=== PATIENT | female | born 1975 | race Caucasian/White ===

== ENCOUNTER 2016-10-16 11:15 | Observation (INO) | payer OTHER ==
[~2016-10-16] VITALS: Ht 165 cm; Wt 77.0 kg
[2016-10-16] MEDS ORDERED: RINGERS SOLUTION,LACTATED 1,000 ML IV ONE (12:45)
[2016-10-16 13:20] VITALS: BP 120/73
[2016-10-16 13:42] LABS: GLUCOSE COMMENT 1 Doctor Notified; GLUCOSE,POINT OF CARE 66 MG/DL (70-110)
[2016-10-16] MEDS: BETAMETHASONE SOLUSPAN 6 MG/ML 5 ML VIAL IM SCH (13:43)
[2016-10-16] MEDS: RINGERS SOLUTION,LACTATED 1,000 ML IV SCH ×3 (15:50→23:17)
[2016-10-16] MEDS ORDERED: NIFEdipine 10 MG CAPSULE PO ONE (16:15)
[2016-10-16] MEDS ORDERED: PRENATALVIT PO (16:44)
[2016-10-16] MEDS ORDERED: [UNRECOGNIZED DRUG - OTHER] PO (16:44)
[2016-10-16] MEDS ORDERED: [UNRECOGNIZED DRUG - OTHER] PO (16:44)
[2016-10-16 22:59] LABS: BASOPHILS # (AUTO) 0.01 K/uL (0.00-0.20); BASOPHILS % (AUTO) 0.2 % (0.0-2.0); EOSINOPHILS % (AUTO) 0.03 % (1.0-6.0); LYMPHOCYTES # (AUTO) 0.6 K/uL (1.0-4.8); LYMPHOCYTES % (AUTO) 11.6 % (22.0-44.0); MEAN CORPUSCULAR HEMOGLOBIN 31.5 pg (26.0-34.0); MEAN CORPUSCULAR VOLUME 92 fL (80-100); MONOCYTES # (AUTO) 0.1 K/uL (0.1-1.0); MONOCYTES % (AUTO) 2.1 % (2.0-9.0); NEUTROPHILS # (AUTO) 4.7 K/uL (1.8-7.7); RED BLOOD CELL COUNT(AUTO) 4.12 MIL/uL (4.00-5.20); RED CELL DISTRIBUTION WIDTH 15.5 % (11.5-14.5); WHITE BLOOD COUNT (AUTO) 5.5 K/uL (4.5-11.0)
[2016-10-16 23:06] LABS: NEUTROPHILS % (AUTO) 86.2 % (40.0-70.0)
[2016-10-17] MEDS: BETAMETHASONE SOLUSPAN 6 MG/ML 5 ML VIAL IM SCH (01:47)
[2016-10-17] MEDS: NIFEdipine 10 MG CAPSULE PO SCH ×2 (03:33→09:02)
[2016-10-17] MEDS: RINGERS SOLUTION,LACTATED 1,000 ML IV SCH ×2 (05:03→07:44)
[2016-10-17 08:52] LABS: GLUCOSE COMMENT 1 FASTING; GLUCOSE,POINT OF CARE 77 MG/DL (70-110)
== END 2016-10-17 10:20 | disposition home or self-care (01) ==
LOC: 4S 11:15
PROVIDERS: ADMIT Obstetrics & Gynecology; ATTEND Obstetrics & Gynecology
DX: O30.003 Twin pregnancy, unspecified number of placenta and unspecified number of amniotic sacs, third trimester (principal); O26.893 Other specified pregnancy related conditions, third trimester; O62.9 Abnormality of forces of labor, unspecified; M54.9 Dorsalgia, unspecified; O09.523 Supervision of elderly multigravida, third trimester; O24.419 Gestational diabetes mellitus in pregnancy, unspecified control; Z3A.36 36 weeks gestation of pregnancy; R10.9 Unspecified abdominal pain
CPT/HCPCS: 36415; 59025; 82962 ×2; 85025; 86850; 86900; 86901; 96360; 96361 ×2; 96372 ×2; G0378 ×2; J0702 ×2; J7120 ×2

== ENCOUNTER 2016-10-21 09:06 | Observation (INO) | payer OTHER ==
[~2016-10-21] VITALS: Ht 166 cm; Wt 79.8 kg
[~2016-10-21 09:06] MED LIST: PRENATALVIT PO; [UNRECOGNIZED DRUG - OTHER] PO; [UNRECOGNIZED DRUG - OTHER] PO
[2016-10-21 09:38] VITALS: BP 121/66
[2016-10-21] MEDS ORDERED: PREN1TAB80 PO (11:22)
[2016-10-21] MEDS ORDERED: BETAMETHASONE SOLUSPAN 6 MG/ML 5 ML VIAL IM ONE (11:30)
[2016-10-21] MEDS ORDERED: NIFEdipine 10 MG CAPSULE PO ONE (11:30)
[2016-10-21 11:46] LABS: HEMOGLOBIN A1C 5.3 % (4.5-6.2)
== END 2016-10-21 12:50 | disposition home or self-care (01) ==
LOC: 4S 09:06
PROVIDERS: ADMIT Obstetrics & Gynecology; ATTEND Obstetrics & Gynecology
DX: O26.893 Other specified pregnancy related conditions, third trimester (principal); R10.9 Unspecified abdominal pain; O09.523 Supervision of elderly multigravida, third trimester; Z3A.36 36 weeks gestation of pregnancy
CPT/HCPCS: 36415; 59025; 82947; 83036; 96372; G0378; J0702

== ENCOUNTER 2016-10-24 20:51 | Inpatient (IN) | payer OTHER ==
[~2016-10-24] VITALS: Ht 165 cm; Wt 81.6 kg
[~2016-10-24 20:51] MED LIST changes: +PREN1TAB80 PO; -PRENATALVIT PO
[2016-10-24] MEDS ORDERED: RINGERS SOLUTION,LACTATED 1,000 ML IV ONE (21:14)
[2016-10-24] MEDS ORDERED: CITRIC ACID/SODIUM CITRATE 30 ML SOLUTION UDCUP PO ONE (21:15)
[2016-10-24] MEDS ORDERED: METOCLOPRAMIDE HCL 5 MG/ML 2 ML VIAL IVP ONE (21:15)
[2016-10-24 21:52] LABS: BASOPHILS # (AUTO) 0.01 K/uL (0.00-0.20); BASOPHILS % (AUTO) 0.2 % (0.0-2.0); EOSINOPHILS # (AUTO) 0.02 K/uL (0.00-0.70); EOSINOPHILS % (AUTO) 0.26 % (1.0-6.0); HEMATOCRIT 36.5 % (36-46); LYMPHOCYTES # (AUTO) 0.9 K/uL (1.0-4.8); LYMPHOCYTES % (AUTO) 12.7 % (22.0-44.0); MEAN CORPUSCULAR HEMOGLOBIN 31.8 pg (26.0-34.0); MEAN CORPUSCULAR HGB CONC 35.5 G/dL (31.0-37.0); MEAN CORPUSCULAR VOLUME 90 fL (80-100); MONOCYTES # (AUTO) 0.6 K/uL (0.1-1.0); MONOCYTES % (AUTO) 9.2 % (2.0-9.0); NEUTROPHILS # (AUTO) 5.2 K/uL (1.8-7.7); NEUTROPHILS % (AUTO) 77.7 % (40.0-70.0); RED BLOOD CELL COUNT(AUTO) 4.08 MIL/uL (4.00-5.20); RED CELL DISTRIBUTION WIDTH 14.9 % (11.5-14.5); WHITE BLOOD COUNT (AUTO) 6.8 K/uL (4.5-11.0)
[2016-10-24] MEDS ORDERED: NIFE10 PO (21:59)
[2016-10-24] MEDS: RINGERS SOLUTION,LACTATED 1,000 ML IV SCH (22:12)
[2016-10-24 22:35] VITALS: BP 128/72
[2016-10-25] MEDS: RINGERS SOLUTION,LACTATED 1,000 ML IV SCH (01:36)
[2016-10-25] MEDS ORDERED: METOCLOPRAMIDE HCL 5 MG/ML 2 ML VIAL IVP ONE (04:09)
[2016-10-25] MEDS ORDERED: ONDANSETRON HCL 4 MG/2 ML VIAL IVP ONE (04:09)
[2016-10-25] MEDS ORDERED: OXYTOCIN 10 UNITS/ML VIAL IM ONE (04:09)
[2016-10-25] MEDS ORDERED: GLYCOPYRROLATE 0.2 MG/ML VIAL IM ONE (04:09)
[2016-10-25] MEDS ORDERED: MORPHINE SULFATE/PF 1 MG/ML 10 ML AMP ONE (07:48)
[2016-10-25] MEDS ORDERED: NALOXONE HCL 0.4 MG/ML VIAL IVP PRN (09:15)
[2016-10-25] MEDS ORDERED: GENTAMICIN SULFATE 160 MG in DEXTROSE 5%-WATER 50 ML IV ONE ×2 (09:15→20:00)
[2016-10-25] MEDS ORDERED: ONDANSETRON HCL 4 MG/2 ML VIAL IVP PRN (09:15)
[2016-10-25] MEDS ORDERED: NALBUPHINE HCL 10 MG/ML VIAL IVP PRN ×2 (09:15)
[2016-10-25] MEDS ORDERED: *CLINICAL-GENTAMICIN DOSING CLINICAL ONE ×2 (09:15)
[2016-10-25] MEDS ORDERED: DiphenhydrAMINE HCL 50 MG/ML VIAL IVP PRN (09:15)
[2016-10-25] MEDS ORDERED: OXYGEN THERAPY IH SCH ×2 (09:15)
[2016-10-25] MEDS: OXYGEN THERAPY IH SCH (09:15)
[2016-10-25] MEDS ORDERED: FentaNYL CITRATE-PF 100 MCG/2 ML VIAL IVP PRN (09:15)
[2016-10-25] MEDS ORDERED: MEPERIDINE-PF 25 MG/ML SYRINGE IVP PRN (09:15)
[2016-10-25] MEDS ORDERED: LANOLIN 7 GM OINTMENT TP PRN (09:30)
[2016-10-25] MEDS ORDERED: ACETAMINOPHEN/CODEINE 300-30 MG TABLET PO PRN ×2 (09:30)
[2016-10-25] MEDS: NALBUPHINE HCL 10 MG/ML VIAL IVP SCH ×2 (11:59→18:21)
[2016-10-25] MEDS: DEXTROSE 5%-0.45% SODIUM CHL 1,000 ML IV SCH ×3 (14:24→22:53)
[2016-10-25] MEDS ORDERED: HYDROmorphone 2 MG/ML SYRINGE IVP PRN (14:45)
[2016-10-25] MEDS: ACETAMINOPHEN 1000 MG/ISO-OSM 100 ML IV SCH ×2 (14:53→22:53)
[2016-10-25 17:29] LABS: EOSINOPHILS % (AUTO) 0 % (1.0-6.0); HEMATOCRIT 30.6 % (36-46); HEMOGLOBIN 10.6 g/dL (12.0-16.0); LYMPHOCYTES # (AUTO) 0.8 K/uL (1.0-4.8); LYMPHOCYTES % (AUTO) 6.4 % (22.0-44.0); MEAN CORPUSCULAR HEMOGLOBIN 31.1 pg (26.0-34.0); MEAN CORPUSCULAR HGB CONC 34.5 G/dL (31.0-37.0); MEAN CORPUSCULAR VOLUME 90 fL (80-100); MONOCYTES % (AUTO) 8.2 % (2.0-9.0); NEUTROPHILS # (AUTO) 10.2 K/uL (1.8-7.7); RED CELL DISTRIBUTION WIDTH 14.7 % (11.5-14.5); WHITE BLOOD COUNT (AUTO) 11.9 K/uL (4.5-11.0)
[2016-10-25 17:30] LABS: NEUTROPHILS % (AUTO) 85.4 % (40.0-70.0)
[2016-10-25] MEDS ORDERED: FentaNYL CITRATE-PF 100 MCG/2 ML VIAL IVP ONE (23:57)
[2016-10-26] MEDS: NALBUPHINE HCL 10 MG/ML VIAL IVP SCH ×2 (00:42→08:07)
[2016-10-26] MEDS ORDERED: DEXTROSE 5%-0.45% SODIUM CHL 1,000 ML IV ONE (04:37)
[2016-10-26] MEDS: DEXTROSE 5%-0.45% SODIUM CHL 1,000 ML IV SCH (04:39)
[2016-10-26] MEDS: ACETAMINOPHEN 1000 MG/ISO-OSM 100 ML IV SCH (05:57)
[2016-10-26] MEDS: IBUPROFEN 800 MG TABLET PO SCH ×3 (08:08→20:45)
[2016-10-26] MEDS: MAGNESIUM HYDROXIDE SUSPENSION 30 ML UDCUP PO SCH ×2 (09:37→20:44)
[2016-10-26] MEDS: OXYGEN THERAPY IH SCH (19:44)
[2016-10-27] MEDS: IBUPROFEN 800 MG TABLET PO SCH ×4 (02:33→20:03)
[2016-10-27] MEDS: MAGNESIUM HYDROXIDE SUSPENSION 30 ML UDCUP PO SCH ×2 (08:32→21:00)
[2016-10-28] MEDS: IBUPROFEN 800 MG TABLET PO SCH ×2 (02:06→07:43)
[2016-10-28] MEDS ORDERED: IBUP-1547 PO (09:34)
[2016-10-28] MEDS ORDERED: FERR-89 PO (09:35)
[2016-10-28] MEDS ORDERED: PREN1TAB80 PO (09:42)
== END 2016-10-28 12:30 | disposition home or self-care (01) | DRG 765 ==
LOC: 4S 20:51 → OBSVTOIN 20:51
PROVIDERS: ADMIT Obstetrics & Gynecology; ATTEND Obstetrics & Gynecology
PROC: 10D00Z1 Extraction of Products of Conception, Low, Open Approach (ICD-10-PCS; principal; 2016-10-25)
DX: O32.8XX0 Maternal care for other malpresentation of fetus, not applicable or unspecified (principal); O60.23X0 Term delivery with preterm labor, third trimester, not applicable or unspecified; O30.003 Twin pregnancy, unspecified number of placenta and unspecified number of amniotic sacs, third trimester; Z3A.37 37 weeks gestation of pregnancy; Z37.2 Twins, both liveborn; O32.1XX0 Maternal care for breech presentation, not applicable or unspecified
CPT/HCPCS: 86850; 86900; 86901; 86920; 87081; J0131; J0690; J1170; J1580; J2300; J2405; J2590; J2765; J3010; J3490; J7060; J7120